=== PATIENT | female | born 1975 | race Caucasian/White ===

== ENCOUNTER 2021-11-10 06:34 | Inpatient (IN) | payer MEDICARE ==
[~2021-11-10] VITALS: Ht 152.4 cm; Wt 76.4 kg
[2021-11-10] MEDS ORDERED: Prozac20 MG PO (06:48)
[2021-11-10] MEDS ORDERED: LISI20 PO (06:48)
[2021-11-10] MEDS ORDERED: ROXICODONE15 MG PO (06:48)
[2021-11-10 06:56] LABS: BASOPHILS ABSOLUTE AUTO 0.05 K/mm3 (0.00-0.23); BASOPHILS PERCENT AUTO 0 % (0-2); EOSINOPHILS ABSOLUTE AUTO 0.09 K/mm3 (0.00-0.68); EOSINOPHILS PERCENT AUTO 1 % (0-6); Hematocrit 44.5 % (33.0-51.0); Hemoglobin 15.3 g/dL (11.5-16.0); IMMATURE GRAN ABSOLUTE AUTO 0.05 K/mm3 (0.00-0.10); IMMATURE GRAN PERCENT AUTO 0 % (0-1); LYMPHOCYTES PERCENT AUTO 6 % (21-46); MONOCYTES ABSOLUTE AUTO 0.38 K/mm3 (0.16-1.47); MONOCYTES PERCENT AUTO 3 % (4-13); Mean Corpuscular HGB 29.9 pg (26.0-34.0); Mean Corpuscular HGB Conc 34.4 g/dL (31.5-36.5); Mean Corpuscular Volume 87 fL (80-100); Mean Platelet Volume 9.8 fL (9.1-12.4); NEUTROPHILS ABSOLUTE AUTO 12.91 K/mm3 (1.96-9.15); NEUTROPHILS PERCENT AUTO 90 % (41-73); Platelet Count 272 K/mm3 (150-400); RDW Coefficient Variation 13.7 % (11.7-14.2); RDW Standard Deviation 44.4 fL (35.1-46.3); Red Blood Cell Count 5.11 M/mm3 (3.80-5.20); White Blood Cell Count 14.38 K/mm3 (4.00-11.30)
[2021-11-10 07:15] LABS: Albumin, Blood 3.6 g/dL (3.4-5.0); Albumin/Globulin Ratio 0.8 (0.8-1.8); Bilirubin, Total 0.5 mg/dL (0.1-1.0); Calcium, Blood 9.2 mg/dL (8.5-10.1); Creatinine, Blood 0.43 mg/dL (0.40-1.00); Globulin, Blood 4.4 g/dL (2.2-4.0); Potassium, Blood 3.6 mmol/L (3.5-5.5)
[2021-11-10 07:27] LABS: Source, Urine Clean Catch
[2021-11-10 07:34] LABS: Bilirubin, Urine Neg (Neg); Blood, Urine 4+ (Neg); Glucose Qualitative, Urine Neg (Neg); Ketones, Urine Neg (Neg); Leukocyte Esterase, Urine 3+ (Neg); Nitrite, Urine Neg (Neg); Protein, Urine 3+ (Neg); Specific Gravity, Urine 1.005 (1.003-1.022); Urobilinogen, Urine NORM (Normal)
[2021-11-10 07:44] LABS: Appearance, Urine Turbid (Clear); Color, Urine Yellow (P-Yellow)
[2021-11-10 07:45] LABS: Red Blood Cells, Urine TNTC /hpf (0-2); White Blood Cells, Urine TNTC /hpf (0-5)
[2021-11-10 07:46] LABS: Bacteria Many /hpf
[2021-11-10 07:47] LABS: Amorphous Mod (0-Heavy); Squamous Epithelial Cells Mod /hpf (Few); Triple Phosphate Crystals Few /hpf
--- NOTE | 2021-11-10 12:55 | NUR ---
PT ARRIVED FROM ED FOR SBO. PT WAS ALERT BUT MOANING. PT STATED SHE WAS IN PAIN. PT WAS TRANSFERED TO SURGICAL BED WITH SLIDER SHEET. PT'S BELONGINGS THAT CAME WITH HER ON [place] WERE PLACED IN PT'S CLOSET. PT WAS PLACED IN HOSPITAL GOWN BUT SPORTS BRA AND YOGA PANTS WERE LEFT IN PLACE. THE PANTS APPERAED TO BE HOLDING A PAD IN PLACE OVER PT'S UROSTOMY. PT STATED SHE WANTED WATER AND WAS DIFFICULT TO REASON WITH AND BECOME LOUDER WITH HER REQUEST FOR WATER. EDUCATION WAS PROVIDED THAT DRINKING WATER COULD MAKE HER PAIN AND CONDITION WORSE. PT DID NOT SEEM CARE IF IT MADE HER SYMPTOMS WORSE. Josue JULIEN GAVE PT PAIN MEDICATIOIN AND PT IS NOW RESTING AND APPEARS TO BE ASLEEP. WILL CONTINUE TO MONITOR.
--- NOTE | 2021-11-10 13:36 | NUR ---
PT ARRIVED TO THE UNIT AT APPROXIMATELY 1300. PT CRYING IN PAIN AND REQUESTING WATER. PT WAS EDUCATED THAT DRINKING WATER WILL CAUSE VOMITING AND WILL NOT ALLOW FOR BOWEL REST. PT STATES SHE WAS TOLD SHE COULD HAVE PO FLUIDS IN THE ER. PT WAS EDUCATED THAT IT IS OFTEN OK TO HAVE SIPS AND ICE CHIPS FOR COMFORT, IF AN NG TUBE IS IN PLACE. PT WAS EDUCATED TAKING PO WHEN NO NG IS IN PLACE, WILL NOT ALLOW THE BOWELS TO REST, AND COULD PROLONG HER ILLNESS AND INCREASE PAIN AND NAUSEA. PT CONTINUED TO CRY AND REPORT ABD PAIN, WELL CONTINUING TO REQUEST WATER. MOUTH MOISTERIZER AND MOUTH SWABS OFFERED PT REFUSED. SIP OF WATER WAS PROVIDED AT PT INSISTANCE, SHE VOMITED A SMALL AMOUNT AFTER SHE TOOK A SIP OF WATER, EDUCATION REINFORCED. PT CONTINUING TO REFUSE NG TUBE PLACMENT. LUNG SOUNDS ARE CLEAR. HEART SOUNDS REGULAR. BOWEL SOUNDS HYPOACTIVE TO THE RUQ, BOWEL SOUNDS MINIMAL TO REMAINING QUADRANTS. FOUL ODOR PRESENT, APPEARS TO BE COMING FROM THE PAD USED TO COVER HER STOMA. PT COVERS UROSTOMY SITE WITH A INCONTINENCE PAD, PAD IS SOILED, PT REPORTS ALLERGY TO LATEX. UNSURE IF SANITARY PADS AT THE HOSPITAL ARE LATEX FREE, PT REPORTED SHE WILL WAIT FOR HER FRIEND TO BRING CLEAN PADS AND CLEAN UNDERWARE. PLAN TO COMPLETE FULL SKIN ASSESSMENT AFTER HER FRIEND SUDHAKAR BRINGS ITEMS FROM HOME. DILAUDID GIVEN FOR PAIN, PT RESPONDED WELL AND IS RESTING WITH EYES CLOSED. CONTINUOUS OX IN PLACE FOR HIGH RISK PAIN MANAGEMENT. WILL CONTINUE TO MONITOR.
[2021-11-10] MEDS ORDERED: CYCL10 PO (14:03)
[2021-11-10] MEDS ORDERED: TRIDERM28.4 GM TOP (14:20)
[2021-11-10] MEDS ORDERED: NYSTATIN15 GM TOP (14:21)
[2021-11-10] MEDS ORDERED: EPIPEN0.3 MG/0.3 IM (14:21)
[2021-11-10] MEDS ORDERED: PROM25 PO (14:22)
--- NOTE | 2021-11-10 18:09 | NUR ---
SHIFT SUMMARY PT ARRIVED FROM ED WITH A PARTIAL SBO. PT HAS SPINA BIFIDA THAT LIMITS HER MOBILITY. PT USES WHEELCHAIR AT BASELINE. ED WAS UNABLE TO PLACE NG TUBE. 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 PT STATES SHE ALSO HAS NEUROGENIC BOWEL AND CURRENETLY HAS A PAD IN HER UNDERWEAR FOR INCONTINENCE. PT REFUSED THE OFFER OF ATTENDS. PT HAS BEEN COMPLAINING OF BACK PAIN R/T TO A PAST SPINAL SURGERY. PT HAS HAD NO EPISODES OF VOMITTING SINCE BEING ON THE FLOOR. PT IS CURRENTLY RESTING WITH CALL LIGHT IN PLACE. WILL CONTINUE TO MONITOR.
--- NOTE | 2021-11-10 19:54 | NUR ---
SHIFT SUMMARY PT'S PAIN HAS BEEN BETTER MANAGED SINCE ARRIVAL FROM ER; SHE IS TAKING DILAUDID FOR PAIN MANAGEMENT. PT'S NAUSEA HAS BEEN MANAGED WITH PHENERGAN. SHE IS TOLERATING ICE CHIPS. PT IS ABLE TO REPOSITION HERSELF IN BED. SHE CALLS APPROPRIATELY. PT'S FAMILY VISITED AND WAS AT THE BEDSIDE FOR SUPPORT THIS EVENING. REPORT GIVEN TO GEORGINA GUTHRIE.
--- NOTE | 2021-11-11 04:48 | NUR ---
SHIFT SUMMARY NO ACUTE CHANGES THIS SHIFT. PT DOES REPORT SOME FLATUS. SHE HAS BEEN TOLERATING SMALL AMOUNTS OF ICE CHIPS. IVF INFUSING PER ORDERS. 0.5 MG DILAUDID FOR PAIN. PT OCCASSIONALLY NAUSEATED AND HAS RECEIVED PHENERGAN AND COMPAZINE PRN. PT SELF CATHS THROUGH HER UROSTOMY. USES CALL LIGHT APPROPRIATELY.
[2021-11-11 05:17] LABS: BASOPHILS ABSOLUTE AUTO 0.03 K/mm3 (0.00-0.23); BASOPHILS PERCENT AUTO 0 % (0-2); EOSINOPHILS ABSOLUTE AUTO 0.02 K/mm3 (0.00-0.68); EOSINOPHILS PERCENT AUTO 0 % (0-6); Hematocrit 39.8 % (33.0-51.0); Hemoglobin 13.6 g/dL (11.5-16.0); IMMATURE GRAN ABSOLUTE AUTO 0.03 K/mm3 (0.00-0.10); IMMATURE GRAN PERCENT AUTO 0 % (0-1); LYMPHOCYTES ABSOLUTE AUTO 1.41 K/mm3 (0.84-5.20); LYMPHOCYTES PERCENT AUTO 13 % (21-46); MONOCYTES ABSOLUTE AUTO 0.63 K/mm3 (0.16-1.47); MONOCYTES PERCENT AUTO 6 % (4-13); Mean Corpuscular HGB 29.6 pg (26.0-34.0); Mean Corpuscular HGB Conc 34.2 g/dL (31.5-36.5); Mean Corpuscular Volume 87 fL (80-100); Mean Platelet Volume 10.3 fL (9.1-12.4); NEUTROPHILS ABSOLUTE AUTO 8.58 K/mm3 (1.96-9.15); NEUTROPHILS PERCENT AUTO 80 % (41-73); Platelet Count 244 K/mm3 (150-400); RDW Coefficient Variation 13.8 % (11.7-14.2); RDW Standard Deviation 43.9 fL (35.1-46.3); Red Blood Cell Count 4.59 M/mm3 (3.80-5.20)
[2021-11-11 05:29] LABS: International Normalized Ratio 1.05
[2021-11-11 05:51] LABS: Albumin/Globulin Ratio 0.8 (0.8-1.8); Bilirubin, Total 0.6 mg/dL (0.1-1.0); Bun/Creatinine Ratio 29.3 (12.0-20.0); Calcium, Blood 8.3 mg/dL (8.5-10.1); Creatinine, Blood 0.41 mg/dL (0.40-1.00); Globulin, Blood 3.7 g/dL (2.2-4.0); Magnesium, Blood 2.1 mg/dL (1.6-2.4); Potassium, Blood 3.3 mmol/L (3.5-5.5); Total Protein, Blood 6.7 g/dL (6.4-8.2)
--- NOTE | 2021-11-11 19:22 | NUR ---
SHIFT SUMMARY S/P SBO, A/OX 4, VSS, TOLERATING CLEARS AFTER DIET ADVANCED PER SURGERY, PAIN MANAGED PER EMAR, NAUSEA MANAGED PER EMAR, PT WC AT BASELINE. NO ACUTE EVENTS THIS SHIFT, CALL LIGHT IN REACH, REPORT GIVEN TO GEORGINA GUTHRIE.
[2021-11-12 05:07] LABS: BASOPHILS ABSOLUTE AUTO 0.04 K/mm3 (0.00-0.23); BASOPHILS PERCENT AUTO 0 % (0-2); EOSINOPHILS ABSOLUTE AUTO 0.11 K/mm3 (0.00-0.68); EOSINOPHILS PERCENT AUTO 1 % (0-6); Hematocrit 37.7 % (33.0-51.0); Hemoglobin 12.9 g/dL (11.5-16.0); IMMATURE GRAN ABSOLUTE AUTO 0.04 K/mm3 (0.00-0.10); IMMATURE GRAN PERCENT AUTO 0 % (0-1); LYMPHOCYTES ABSOLUTE AUTO 2.02 K/mm3 (0.84-5.20); LYMPHOCYTES PERCENT AUTO 18 % (21-46); MONOCYTES ABSOLUTE AUTO 0.75 K/mm3 (0.16-1.47); MONOCYTES PERCENT AUTO 7 % (4-13); Mean Corpuscular HGB 29.7 pg (26.0-34.0); Mean Corpuscular HGB Conc 34.2 g/dL (31.5-36.5); Mean Corpuscular Volume 87 fL (80-100); Mean Platelet Volume 10.1 fL (9.1-12.4); NEUTROPHILS PERCENT AUTO 73 % (41-73); Platelet Count 215 K/mm3 (150-400); RDW Coefficient Variation 13.8 % (11.7-14.2); RDW Standard Deviation 43.6 fL (35.1-46.3); Red Blood Cell Count 4.35 M/mm3 (3.80-5.20); White Blood Cell Count 10.96 K/mm3 (4.00-11.30)
[2021-11-12 05:24] LABS: Albumin, Blood 2.9 g/dL (3.4-5.0); Anion Gap 8 mmol/L (6-16); Blood Urea Nitrogen 8 mg/dL (8-24); CO2, Blood 20 mmol/L (21-32); Calcium, Blood 7.9 mg/dL (8.5-10.1); Chloride, Blood 112 mmol/L (98-108); Creatinine, Blood 0.35 mg/dL (0.40-1.00); Glomerular Filtration Rate 128 (60-); Glucose, Blood 87 mg/dL (70-99); Phosphorus, Blood 1.8 mg/dL (2.5-4.9); Potassium, Blood 3.5 mmol/L (3.5-5.5); Sodium, Blood 140 mmol/L (136-145)
--- NOTE | 2021-11-12 07:20 | NUR ---
PRODUCT SAFETY ADMINISTRATOR SUMMARY PATIENT A&O X4 AND COOPERATIVE. VSS. PT DENIED ABD PAIN BUT COMPLAINED OF PAIN NECK, BACK, AND SHOULDER. SHE WAS MEDICATED WITH DILAUDED, PER EMAR. PT REPORTED NAUSEA EARLY IN THE SHIFT. SHE WAS MEDICATED WITH COMPAZINE, PER EMAR. NO OTHER ACUTE CHANGES THIS SHIFT.
--- NOTE | 2021-11-12 15:47 | NUR ---
SURGEON AT BEDSIDE PER DR FLEMING, PT IS TO BEGIN MIRALAX TO ENCOURAGE A BOWEL MOVEMENT. DR FLEMING ALSO PROVIDED A VERBAL ORDER TO INCREASE PT'S PO OXYCODONE FROM 10MG Q6 TO 15MG Q6.
--- NOTE | 2021-11-12 16:58 | NUR ---
SHIFT SUMMARY PT POD 2 LAP APPY. LAP SITES C/D/I. NELY SITE COVERED W/GAUZE 20ML CLOUDY SANGUINOUS DRAINAGE OUT THIS SHIFT. PT IS TAKING IN VERY SMALL AMTS REGULAR DIET WITH NO INCREASE IN PAIN, N/V. SALINE LOCKED IN BETWEEN ABX INFUSIONS. PT AMBULATED IN HALLWAY WITH MIN ASSIST BY MOTHER.
--- NOTE | 2021-11-12 18:43 | NUR ---
SHIFT SUMMARY PT REPORTING INCREASING DISCOMFORT T/O THE SHIFT. PER DR FLEMING, PT OXYCODONE DOSE INCREASED TO 15MG Q6 PRN. PT CONTINUES TO REPORT SIGNIFICANT PAIN IN THE R HIP. PT'S UROSTOMY DOES NOT SHOW ANY APPARENT ISSUES AND PT IS ABLE TO STRAIGHT CATH W/O ASSISTANCE. PT MOVED FROM BED TO W/C W/ 1 PERSON ASSIST AND WHEELED HERSELF THROUGH THE S[place]ORO. PT IS RESTING IN HER ROOM AT THIS TIME. WILL CONTINUE TO MONITOR AND UPDATE NECESSARY.
--- NOTE | 2021-11-13 04:41 | NUR ---
SUMMARY PT SLEPT ON AND OFF T/O THE NIGHT. PT WAS SUCESSFUL IN HAVING A BM TONIGHT, PASSING FLATTUS REGULARLY. PT MEDICATED FOR PAIN PER EMAR WITH GOOD RESULTS. NO ACUTE EVENTS NOTED. PT CURRENTLY SLEEPING IN NO DISTRESS, CALL LIGHT IN REACH.
[2021-11-13 07:45] LABS: Bun/Creatinine Ratio 11.1 (12.0-20.0); Calcium, Blood 7.7 mg/dL (8.5-10.1); Creatinine, Blood 0.45 mg/dL (0.40-1.00)
--- NOTE | 2021-11-13 12:46 | NUR ---
LOW POTASSIUM DR TAVAREZ ORDERED PO POTASSIUM SUPP THIS AM. PATIENT REFUSED STATING THE PILLS WERE TOO LARGE TO SWALLOW. ALSO REFUSED CUTTING OR CRUSHING PILLS IN APPLE SAUCE. REFUSED PLACEMENT OF NEW IV FOR POTASSIUM GIVEN IV. CALLED DR TAVAREZ WHO STATED IT WOULD BE OKAY FOR PATIENT TO EAT A BANANA INSTEAD. PATIENT IS ALLERGIC TO BANANAS. PROVIDED PATIENT WITH SEVERAL POTASSIUM RICH FOOD ITEMS INCLUDING ORANGE JUICE, ORANGES, CANTALOUPE, HONEY DEW, AND POTATO CHIPS. PATIENT IS TOLERATING THE FOOD PROVIDED.
[2021-11-13] MEDS ORDERED: POLYETHYLENE G500 G1 PO (14:49)
--- NOTE | 2021-11-13 15:23 | NUR ---
DISCHARGE SUMMARY PATIENT ALERT AND ORIENTED. BM DURING TANK CAR REPAIRER AND PASSING GAS. DIET ADVANCED THIS SHIFT AND TOLERATING REGULAR DIET. SELF-CATH PER UROSTOMY. USING WC AT BASELINE. LOW POTASSIUM TREATED WITH POTASSIUM RICH FOODS. CLEARED FROM GENERAL SURGERY BY DR FLEMING. DISCHARGE ORDERS OBTAINED FROM DR TAVAREZ. DISCHARGE EDUCATION GIVEN ON SBO, CONSTIPATION, AND FOLLOW UP WITH PCP AND UROLOGY. PATIENT LEFT UNIT VIA WHEELCHAIR FOR HOME WITH FAMILY MEMBER AT 1500.
== END 2021-11-13 15:06 | disposition home or self-care (01) | DRG 389 ==
LOC: ER 06:34 → SURS 10:11
PROVIDERS: Family Medicine; Internal Medicine; Nurse Practitioner Acute Care; ADMIT Internal Medicine
DX: K56.600 Partial intestinal obstruction, unspecified as to cause (principal); N39.0 Urinary tract infection, site not specified; N13.30 Unspecified hydronephrosis; Q05.4 Unspecified spina bifida with hydrocephalus; I10 Essential (primary) hypertension; M54.9 Dorsalgia, unspecified; E87.6 Hypokalemia; G89.4 Chronic pain syndrome; N20.0 Calculus of kidney; N31.9 Neuromuscular dysfunction of bladder, unspecified; D72.829 Elevated white blood cell count, unspecified; L40.9 Psoriasis, unspecified; L89.159 Pressure ulcer of sacral region, unspecified stage; L89.229 Pressure ulcer of left hip, unspecified stage; L89.219 Pressure ulcer of right hip, unspecified stage; N28.89 Other specified disorders of kidney and ureter; F17.210 Nicotine dependence, cigarettes, uncomplicated; R45.1 Restlessness and agitation; Q65.89 Other specified congenital deformities of hip; Z98.2 Presence of cerebrospinal fluid drainage device; Z98.890 Other specified postprocedural states; Z90.49 Acquired absence of other specified parts of digestive tract; Z88.1 Allergy status to other antibiotic agents; Z88.6 Allergy status to analgesic agent; Z88.5 Allergy status to narcotic agent; Z91.040 Latex allergy status; Z88.8 Allergy status to other drugs, medicaments and biological substances; Z79.811 Long term (current) use of aromatase inhibitors; Z79.891 Long term (current) use of opiate analgesic; Z79.899 Other long term (current) drug therapy
CPT/HCPCS: 36415; 51701; 74176; 80048; 80053; 80069; 81001; 81025; 82550; 83605; 83690; 83735; 85025; 85610; 87086; 94762; 96361; 96374; 96375; 96376; 99285-25; A9270; J0696; J0780; J1170; J2250; J2550; J3480; J7030; J7120

== ENCOUNTER → 2022-05-11 | Outpatient (CLI) | payer MEDICARE ==
[~2022-05-11] MED LIST: AMOCLA875 PO; CYCL10 PO; EPIPEN0.3 MG/0.3 IM; FAMO10 PO; LISI20 PO; NYSTATIN15 GM TOP; POLYETHYLENE G500 G1 PO; PROM25 PO; Prozac20 MG PO; ROXICODONE15 MG PO; SULTRIDS PO; TRIDERM28.4 GM TOP; XOPENEX HFA15 GM INH
== END | disposition home or self-care (01) ==
DX: Q64.9 Congenital malformation of urinary system, unspecified (principal); N30.00 Acute cystitis without hematuria

== ENCOUNTER 2022-05-17 08:23 | Inpatient (IN) | payer MEDICARE, OTHER ==
[~2022-05-17] VITALS: Ht 147.3 cm; Wt 75.5 kg
[~2022-05-17 08:23] MED LIST changes: -AMOCLA875 PO; -FAMO10 PO; -SULTRIDS PO; -XOPENEX HFA15 GM INH
[2022-05-17 09:32] LABS: BASOPHILS ABSOLUTE AUTO 0.04 K/mm3 (0.00-0.23); BASOPHILS PERCENT AUTO 1 % (0-2); EOSINOPHILS ABSOLUTE AUTO 0.26 K/mm3 (0.00-0.68); EOSINOPHILS PERCENT AUTO 3 % (0-6); Hematocrit 36.4 % (33.0-51.0); Hemoglobin 12.4 g/dL (11.5-16.0); IMMATURE GRAN ABSOLUTE AUTO 0.04 K/mm3 (0.00-0.10); IMMATURE GRAN PERCENT AUTO 1 % (0-1); LYMPHOCYTES ABSOLUTE AUTO 1.37 K/mm3 (0.84-5.20); LYMPHOCYTES PERCENT AUTO 17 % (21-46); MONOCYTES PERCENT AUTO 5 % (4-13); Mean Corpuscular HGB 28.3 pg (26.0-34.0); Mean Corpuscular HGB Conc 34.1 g/dL (31.5-36.5); Mean Corpuscular Volume 83 fL (80-100); Mean Platelet Volume 9.7 fL (9.1-12.4); NEUTROPHILS ABSOLUTE AUTO 5.77 K/mm3 (1.96-9.15); NEUTROPHILS PERCENT AUTO 73 % (41-73); Platelet Count 330 K/mm3 (150-400); RDW Coefficient Variation 14.2 % (11.7-14.2); RDW Standard Deviation 42.9 fL (35.1-46.3); Red Blood Cell Count 4.38 M/mm3 (3.80-5.20); White Blood Cell Count 7.88 K/mm3 (4.00-11.30)
[2022-05-17 09:54] LABS: Source, Urine Clean Catch
[2022-05-17 10:01] LABS: Albumin, Blood 2.7 g/dL (3.4-5.0); Albumin/Globulin Ratio 0.5 (0.8-1.8); Bilirubin, Total 0.3 mg/dL (0.1-1.0); Bun/Creatinine Ratio 27.6 (12.0-20.0); Creatinine, Blood 0.43 mg/dL (0.40-1.00); Globulin, Blood 5.3 g/dL (2.2-4.0); Potassium, Blood 3.6 mmol/L (3.5-5.5)
[2022-05-17 10:12] LABS: Appearance, Urine Hazy (Clear); Bilirubin, Urine Neg (Neg); Blood, Urine 5+ (Neg); Color, Urine Yellow (P-Yellow); Glucose Qualitative, Urine Neg (Neg); Ketones, Urine Neg (Neg); Leukocyte Esterase, Urine 3+ (Neg); Nitrite, Urine Pos (Neg); Protein, Urine 3+ (Neg); Urobilinogen, Urine NORM (Normal)
[2022-05-17 10:39] LABS: Bacteria Many /hpf; White Blood Cells, Urine 50-100 /hpf (0-5)
[2022-05-17 10:40] LABS: Mucus Light (0-Heavy); Squamous Epithelial Cells Few /hpf (Few)
[2022-05-17 10:44] LABS: Influenza A, PCR NEGATIVE (NEGATIVE); Influenza B, PCR NEGATIVE (NEGATIVE); Resp Syncytial Virus, PCR NEGATIVE (NEGATIVE); SARS-Cov-2 (COVID-19) PCR, MMC NEGATIVE (NEGATIVE)
[2022-05-17] MEDS ORDERED: SULTRIDS PO (14:37)
[2022-05-17] MEDS ORDERED: CYCL10 PO (19:40)
[2022-05-17] MEDS ORDERED: FAMO10 PO (19:43)
[2022-05-17] MEDS ORDERED: XOPENEX HFA15 GM INH (19:44)
--- NOTE | 2022-05-17 19:47 | NUR ---
ADMISSION: PATIENT IS RECIEVED VIA STRETCHER FROM ER. ABLE TO SLIDE OVER TO THE BED INDEPENDANTLY. PATIENT IS ORIENTED TO ROOM AND CALL [facility]. REPORTING R FANK PAIN 9/10 AND TEARFUL. VSS.
--- NOTE | 2022-05-18 00:22 | NUR ---
/ANXIETY/PAIN: PATIENT WAS MEDICATED FOR R FLANK PAIN WITH 15 MG OXYCODONE AND 1 MG OF DILAUDID IV. PATIENT IS CRYING AND UNCONSOLABLE. PATIENT NEEDS TO STRAIGHT CATH BUT WE DO NOT HAVE 14F COUDE CATHETHER WITH GUIDE WIRE IN THE FACILITY. PATIENT ALSO HAS A LATEX ALLERGY. PATIENT AND BEHAVIORAL HEALTH CLINICIAN BOTH ATTEMPTED TO STRAIGH CATH WITH A 14 FR ALL SILICONE, SILVER/HYDROGEL COATED. THIS WAS UNSUCCESSFUL. BLADDERSCAN SHOWS 268ML IN BLADDER. DR ELLISON IS CALLED AND ORDERS ARE OBTAINED TO DC IVF, PATIENT IS ALREADY NPO AND MONITOR FOR BLADDER DISTENTION. ALSO A DOSE OF ATIVAN 0.5 MG X 1 NOW. ATIVAN WAS GIVEN PATIENT REFUSED IV FENTANYL FOR PAIN. IV DILAUDID IS DUE AT 0030. PATIENT IS CALMER NOW AND SAID SHE WILL WAIT FOR THE DILAUDID. PATIENT IS REFUSING FULL SKIN ASSESSMENT AT THIS TIME AND WOULD NOT ALLOW A TWO RN SKIN CHECK.
--- NOTE | 2022-05-18 06:43 | NUR ---
SHIFT SUMMARY: PATIENT HAD GOOD EFFECT FROM ATIVAN AND SLEPT WELL UNTIL 0530. IV ACCESS WAS LOST. PATIENT REFUSES ATTEMPT FOR IV START IN HAND AREA. CRANE OPERATOR IS MADE AWARE THAT US WILL HAVE TO BE USED. PATIENT HAD BEEN NPO EXCEPT FOR SIPS WITH PO PAIN MEDS.
--- NOTE | 2022-05-18 10:54 | NUR ---
-THIS NURSE CALLED DR. MÁRQUEZ'S SCEDULER TIM AT [phone] EXT. 3 TO ASK IF HAS SEEN CONSULT. NO ANSWER, LEFT MESSAGE FOR HER TO RETURN MY CALL.
--- NOTE | 2022-05-18 15:16 | NUR ---
PT WAS CRYING AND YELLING OUT IN PAIN DESPITE THIS NURSE MEDICATING PER EMAR. PT DEMANDED TO BE DISCHARGED HOME. THIS NURSE CALLED DR TAVAREZ TO NOTIFY HIM THAT SHE EXPRESSED DESIRE TO BE DISCHARGED AND HE IS REVIEWING CHART AT THIS TIME. POSSIBLY TO PROCEED WITH [facility]. PT STATES THAT SHE FEELS SAFE TO GO HOME AND STATES THAT SHE WILL FOLLOW UP WITH IR ORDERED AND WILL TAKE ANTIBIOTICS PRESCRIBED. PER PT REQUEST, THIS NURSE CALLED SUDHAKAR AND UPATED HER. SHE WILL ALSO COORDINATED PICKING UP PT ANTIBIOTICS.
--- NOTE | 2022-05-18 17:43 | NUR ---
SHIFT SUMMARY PT AXO. CRYING AND BREATHING RAPIDLY WHEN NURSE IS IN THE ROOM STATING HER PAIN IS 10/10 ALL DAY DESPITE MEDICATED PER EMAR. STATES THIS NURSE IS "NOT DOING ANYTHING FOR MY PAIN." SEE PRIOR NOTE ABOUT PATIENT REQUESTING DISCHARGE. AT THIS TIME PT IS UNSURE IF SHE WANTS TO BE DISCHARGED HOME NELSY, CHARGE NURSE AWARE. . VSS. R. NEPHROSTOMY PLACED THIS SHIFT, PATENT AND DRAINING RED/BLOOD URINE. STOMA TO RIGHT LOWER ABDOMEN IS PATENT AND PATIENT SELF CATHS WITH HOME CATHETERS AT BEDSIDE, ALSO BLOOD TINGED URINE OUT WITH BLOOD CLOTS. DESPITE ENOUCOURAGING PO FLUID INTAKE, PT STATES THAT DRINKING WATER MAKES HER RINGING IN HER EARS WORSE AND REFUSES TO DRINK WATER. PT UP TO WHEELCHAIR AT BASELINE.
[2022-05-18] MEDS ORDERED: AMOCLA875 PO (18:21)
--- NOTE | 2022-05-18 18:30 | NUR ---
PT CRYING AND UPSET BECAUSE SHE "CAN'T EAT" HER DINNER. SHE STATES THAT SHE IS "ALLERGIC" TO WHEAT BREAD AND TOMATO SAUCE BUT WOULD NOT ALLOW THIS NURSE TO ADD TO HER ALLERY LIST THOUGH. SHE ATE HALF OF HER DINNER ROLL AND STATED HER MOUTH IS NOW "BREAKING OUT." SHE REFUSED TO EAT ANYTHING ELSE ON HER TRAY STATING THAT IT WAS "DISGUSTING." WHEN THIS NURSE ASKED HER IF SHE WAS STILL WANTING TO BE DISCHARGED HOME, SHE STATED SHE WAS UNSURE AND DIDNT WANT TO GO HOME ON A "CLEAR LIQUID DIET." (WHICH SHE'S NOT, SHE HAS A REGULAR DIET AT THIS TIME, SHE IS JUST REFUSING ALL FOODS OFFERED.) DR TAVAREZ NOTIFIED
== END 2022-05-18 19:46 | disposition home or self-care (01) | DRG 699 ==
LOC: ER 08:23 → MEDS 08:24 → ERHOLD 08:24 → MEDS 19:23
PROVIDERS: Emergency Medicine; Physician Assistant; ADMIT Student in an Organized Health Care Education/Training Program
PROC: 0T9030Z Drainage of Right Kidney with Drainage Device, Percutaneous Approach (ICD-10-PCS; principal; 2022-05-18)
PROC: BT11YZZ Fluoroscopy of Right Kidney using Other Contrast (ICD-10-PCS; 2022-05-18)
PROC: BT41ZZZ Ultrasonography of Right Kidney (ICD-10-PCS; 2022-05-18)
DX: T83.518A Infection and inflammatory reaction due to other urinary catheter, initial encounter (principal); F11.20 Opioid dependence, uncomplicated; N13.6 Pyonephrosis; M54.9 Dorsalgia, unspecified; I10 Essential (primary) hypertension; Q05.9 Spina bifida, unspecified; Q65.89 Other specified congenital deformities of hip; B95.4 Other streptococcus as the cause of diseases classified elsewhere; B96.20 Unspecified Escherichia coli [E. coli] as the cause of diseases classified elsewhere; L40.9 Psoriasis, unspecified; G89.4 Chronic pain syndrome; J44.9 Chronic obstructive pulmonary disease, unspecified; R09.1 Pleurisy; F17.210 Nicotine dependence, cigarettes, uncomplicated; Y84.6 Urinary catheterization as the cause of abnormal reaction of the patient, or of later complication, without mention of misadventure at the time of the procedure; Z20.822 Contact with and (suspected) exposure to COVID-19; Z90.49 Acquired absence of other specified parts of digestive tract; Z88.1 Allergy status to other antibiotic agents; Z88.5 Allergy status to narcotic agent; Z91.041 Radiographic dye allergy status; Z91.040 Latex allergy status; Z88.8 Allergy status to other drugs, medicaments and biological substances; Z91.013 Allergy to seafood; Z91.018 Allergy to other foods; Z79.899 Other long term (current) drug therapy; Z79.811 Long term (current) use of aromatase inhibitors; Z98.890 Other specified postprocedural states
CPT/HCPCS: 0241U; 36415; 50432; 71046; 74176; 76937; 80053; 81001; 85025; 87077; 87086; 87147; 87186; 93005; 93010; 94640; 94664; 94760; 99152; 99153; A9270; C1729; C1769; C1894; G0378; J0295; J0696; J1170; J1200; J1720; J2060; J2250; J3010; J7030; J7040; Q9967

== ENCOUNTER 2022-05-29 10:39 | Emergency (ER) | payer MEDICARE, OTHER ==
[~2022-05-29] VITALS: Ht 147.3 cm; Wt 81.7 kg
[~2022-05-29 10:39] MED LIST changes: +AMOCLA875 PO; +FAMO10 PO; +SULTRIDS PO; +XOPENEX HFA15 GM INH
[2022-05-29] MEDS ORDERED: ROXICODONE15 MG PO (12:55)
== END 2022-05-29 17:12 | disposition home or self-care (01) ==
LOC: ER 10:39
DX: T83.092A Other mechanical complication of nephrostomy catheter, initial encounter (principal); Y73.8 Miscellaneous gastroenterology and urology devices associated with adverse incidents, not elsewhere classified; Z88.5 Allergy status to narcotic agent; I10 Essential (primary) hypertension; Z87.891 Personal history of nicotine dependence; Z88.8 Allergy status to other drugs, medicaments and biological substances; Z88.1 Allergy status to other antibiotic agents; Z91.040 Latex allergy status; Z91.013 Allergy to seafood; Z91.018 Allergy to other foods; Z79.899 Other long term (current) drug therapy
CPT/HCPCS: 74176

== ENCOUNTER 2023-04-24 10:33 | Emergency (ER) | payer MEDICARE, OTHER ==
[~2023-04-24] VITALS: Ht 147.3 cm; Wt 81.7 kg
[2023-04-24 10:46] VITALS: BP 165/103
[2023-04-24] MEDS ORDERED: Amoxicillin500 MG PO (10:48)
== END 2023-04-24 10:49 | disposition home or self-care (01) ==
LOC: ER 10:33
DX: K04.7 Periapical abscess without sinus (principal); I10 Essential (primary) hypertension; Z88.5 Allergy status to narcotic agent; Z88.8 Allergy status to other drugs, medicaments and biological substances; Z91.040 Latex allergy status; Z91.013 Allergy to seafood; Z91.018 Allergy to other foods; Z79.899 Other long term (current) drug therapy
CPT/HCPCS: 99282

== ENCOUNTER 2023-07-15 09:37 | Emergency (ER) | payer MEDICARE, OTHER ==
[~2023-07-15] VITALS: Ht 147.3 cm; Wt 81.7 kg
[~2023-07-15 09:37] MED LIST changes: +Amoxicillin500 MG PO
[2023-07-15] MEDS ORDERED: METO50ER PO (10:03)
[2023-07-15] MEDS ORDERED: Cleocin HCl150 MG PO (11:04)
[2023-07-15 11:22] VITALS: BP 139/90
== END 2023-07-15 11:23 | disposition home or self-care (01) ==
LOC: ER 09:37
DX: L03.115 Cellulitis of right lower limb (principal); Z88.8 Allergy status to other drugs, medicaments and biological substances; Z88.6 Allergy status to analgesic agent; Z91.040 Latex allergy status; Z91.013 Allergy to seafood; Z88.1 Allergy status to other antibiotic agents; Z88.5 Allergy status to narcotic agent; Z91.018 Allergy to other foods; Z79.899 Other long term (current) drug therapy; I10 Essential (primary) hypertension
CPT/HCPCS: 93971; 99283-25; A9270

== ENCOUNTER 2024-06-06 09:45 | Emergency (ER) | payer MEDICARE, OTHER ==
[~2024-06-06] VITALS: Ht 147.3 cm; Wt 81.7 kg
[~2024-06-06 09:45] MED LIST changes: +Cleocin HCl150 MG PO; +METO50ER PO; +PENICILLIN250 MG/51 PO
[2024-06-06] MEDS ORDERED: Ipratropium/Albuterol SulF 2.5-0.5MG/3 ML Amp INH ONE (10:10)
[2024-06-06 10:50] VITALS: BP 165/92
[2024-06-06] MEDS ORDERED: ALBU2.5V5 INH (11:49)
[2024-06-06] MEDS ORDERED: Dexamethasone Sod Phos 10 MG/ML 1ML VIAL PO ONE (11:50)
== END 2024-06-06 11:58 | disposition home or self-care (01) ==
LOC: ER 09:45
DX: J45.901 Unspecified asthma with (acute) exacerbation (principal); I10 Essential (primary) hypertension; Q05.9 Spina bifida, unspecified; Z88.6 Allergy status to analgesic agent; Z88.5 Allergy status to narcotic agent; Z91.041 Radiographic dye allergy status; Z91.040 Latex allergy status; Z88.1 Allergy status to other antibiotic agents; Z91.013 Allergy to seafood; Z88.8 Allergy status to other drugs, medicaments and biological substances; Z91.018 Allergy to other foods; Z79.899 Other long term (current) drug therapy
CPT/HCPCS: 71045; 94640; 94664; 99285-25; J1100

== ENCOUNTER 2024-08-29 18:44 | Inpatient (IN) | payer MEDICARE, OTHER ==
[~2024-08-29] VITALS: Ht 134.6 cm; Wt 86.7 kg
[~2024-08-29 18:44] MED LIST changes: +ALBU2.5V5 INH
[2024-08-29 21:02] LABS: BASOPHILS ABSOLUTE AUTO 0.07 K/mm3 (0.00-0.23); BASOPHILS PERCENT AUTO 1 % (0-2); EOSINOPHILS ABSOLUTE AUTO 0.26 K/mm3 (0.00-0.68); EOSINOPHILS PERCENT AUTO 3 % (0-6); Hematocrit 39.6 % (33.0-51.0); Hemoglobin 13.8 g/dL (11.5-16.0); IMMATURE GRAN PERCENT AUTO 1 % (0-1); LYMPHOCYTES ABSOLUTE AUTO 2.04 K/mm3 (0.84-5.20); LYMPHOCYTES PERCENT AUTO 22 % (21-46); MONOCYTES ABSOLUTE AUTO 0.53 K/mm3 (0.16-1.47); MONOCYTES PERCENT AUTO 6 % (4-13); Mean Corpuscular HGB 29.6 pg (26.0-34.0); Mean Corpuscular HGB Conc 34.8 g/dL (31.5-36.5); Mean Corpuscular Volume 85 fL (80-100); NEUTROPHILS ABSOLUTE AUTO 6.42 K/mm3 (1.96-9.15); NEUTROPHILS PERCENT AUTO 68 % (41-73); RDW Coefficient Variation 15.4 % (11.7-14.2); RDW Standard Deviation 47.2 fL (35.1-46.3); Red Blood Cell Count 4.67 M/mm3 (3.80-5.20); White Blood Cell Count 9.42 K/mm3 (4.00-11.30)
[2024-08-29 21:13] LABS: Albumin, Blood 3.2 g/dL (3.4-5.0); Albumin/Globulin Ratio 0.6 (0.8-1.8); Bilirubin, Total 0.3 mg/dL (0.1-1.0); Calcium, Blood 8.6 mg/dL (8.5-10.1); Creatinine, Blood 0.44 mg/dL (0.40-1.00); Globulin, Blood 5.2 g/dL (2.2-4.0); Potassium, Blood 3.8 mmol/L (3.5-5.5); Total Protein, Blood 8.4 g/dL (6.4-8.2)
[2024-08-29 21:16] LABS: Platelet Count 289 K/mm3 (150-400)
[2024-08-29 21:17] LABS: Mean Platelet Volume 11.2 fL (9.1-12.4)
[2024-08-29] MEDS ORDERED: OxyCODONE HCL 5 MG TAB PO ONE (21:55)
[2024-08-29] MEDS ORDERED: DiphenhydrAMINE HCl 50 MG/ML 1ML Vial IV ONE (22:00)
[2024-08-29] MEDS ORDERED: Cefepime HCl 1,000 MG in NS 100 ML IV ONE (22:00)
[2024-08-29] MEDS ORDERED: Vancomycin HCL 1,500 MG in NS 250 ML IV ONE (22:15)
[2024-08-29] MEDS ORDERED: Ondansetron 4 MG TAB PO PRN (22:40)
[2024-08-29] MEDS ORDERED: FLU VACC TS2024-25(6MOS UP)/PF 45 MCG/0.5 ML SYRINGE IM ONE (22:40)
[2024-08-29] MEDS ORDERED: Prochlorperazine Edisylate 10 mg Vial IV PRN (22:45)
[2024-08-29] MEDS ORDERED: NS 1,000 ML IV SCH (23:00)
[2024-08-29 23:18] LABS: C-REACTIVE PROTEIN, EXT RANGE 1.81 mg/dL (0.000-0.300)
[2024-08-30 00:42] VITALS: BP 149/91
[2024-08-30] MEDS ORDERED: ESCI20 PO (00:51)
[2024-08-30] MEDS ORDERED: FAMO20 PO (00:52)
[2024-08-30] MEDS ORDERED: Kaopectate240 MG PO (00:53)
[2024-08-30] MEDS ORDERED: OxyCODONE HCL 5 MG TAB PO PRN ×2 (01:40→11:25)
[2024-08-30] MEDS ORDERED: HYDROmorphone HCl/Pf 1MG SYR IV PRN ×2 (03:05→07:45)
[2024-08-30 04:06] VITALS: BP 124/80
[2024-08-30 05:30] LABS: BASOPHILS ABSOLUTE AUTO 0.04 K/mm3 (0.00-0.23); BASOPHILS PERCENT AUTO 1 % (0-2); EOSINOPHILS ABSOLUTE AUTO 0.27 K/mm3 (0.00-0.68); EOSINOPHILS PERCENT AUTO 3 % (0-6); Hematocrit 36.6 % (33.0-51.0); Hemoglobin 12.5 g/dL (11.5-16.0); IMMATURE GRAN ABSOLUTE AUTO 0.02 K/mm3 (0.00-0.10); IMMATURE GRAN PERCENT AUTO 0 % (0-1); LYMPHOCYTES ABSOLUTE AUTO 1.83 K/mm3 (0.84-5.20); LYMPHOCYTES PERCENT AUTO 21 % (21-46); MONOCYTES ABSOLUTE AUTO 0.46 K/mm3 (0.16-1.47); MONOCYTES PERCENT AUTO 5 % (4-13); Mean Corpuscular HGB 29.1 pg (26.0-34.0); Mean Corpuscular HGB Conc 34.2 g/dL (31.5-36.5); Mean Corpuscular Volume 85 fL (80-100); NEUTROPHILS ABSOLUTE AUTO 6.04 K/mm3 (1.96-9.15); NEUTROPHILS PERCENT AUTO 70 % (41-73); Platelet Count 246 K/mm3 (150-400); RDW Coefficient Variation 14.9 % (11.7-14.2); RDW Standard Deviation 46.5 fL (35.1-46.3); Red Blood Cell Count 4.29 M/mm3 (3.80-5.20); White Blood Cell Count 8.66 K/mm3 (4.00-11.30)
--- NOTE | 2024-08-30 05:41 | NUR ---
NOC SUMMARY- PT ARRIVED TO ROOM IN NO DISTRESS. PT IS INCOTIENT BOWEL AND HAS A URINARY STOMA. PT IS ABLE TO SELF CATH NEEDED. PT RIGHT FOOT HAS A MEPILEX PLACED. PT PAIN HAS BEEN MANAGED WELL. PT IS EATING AND DRINKING. PT HAS EXCORIATION ON BUTTOCKS AND GROIN. PT REFUSED TO BE FLOATED ON PILLOWS. PT STATES SHE IS ABLE TO TURN HERSELF. PT REFUSED TO WEAR TELE DUE TO HAVING SEVERE REACTION TO TELE PATCHES. DR PALM CALLED AND INFORMED OF REFUSAL AND NEED OF MORE PAIN MEDS. PROVIDER ORDERED IV PAIN MEDS. DR HO IN TO SEE PT. NO NEW ORDERS. CALL LIGHT IN REACH.
[2024-08-30 05:45] LABS: International Normalized Ratio 0.97; Prothrombin Time Results 10.4 Sec (9.7-11.5)
[2024-08-30 05:51] LABS: Albumin, Blood 3.1 g/dL (3.4-5.0); Albumin/Globulin Ratio 0.7 (0.8-1.8); Bilirubin, Total 0.4 mg/dL (0.1-1.0); Bun/Creatinine Ratio 20.5 (12.0-20.0); Calcium, Blood 8.4 mg/dL (8.5-10.1); Creatinine, Blood 0.44 mg/dL (0.40-1.00); Globulin, Blood 4.6 g/dL (2.2-4.0); Potassium, Blood 3.8 mmol/L (3.5-5.5); Total Protein, Blood 7.7 g/dL (6.4-8.2)
[2024-08-30] MEDS ORDERED: Cefepime HCl 1,000 MG in NS 100 ML IV SCH (08:00)
[2024-08-30] MEDS ORDERED: Enoxaparin 40 MG/0.4 ML SYR SC SCH (09:00)
[2024-08-30] MEDS ORDERED: Miconazole Nitrate 2% 85 GM PWD TOP SCH (09:00)
[2024-08-30] MEDS ORDERED: Docusate Sodium 100 MG Cap PO SCH (09:00)
[2024-08-30 09:23] VITALS: BP 138/85
--- NOTE | 2024-08-30 10:50 | NUR ---
Pt requested anitnausea medication RN notified.
[2024-08-30] MEDS ORDERED: Vancomycin HCL 1,500 MG in NS 250 ML IV SCH (13:00)
--- NOTE | 2024-08-30 13:20 | NUR ---
DRESSING CHANGE PT REQUESTS DRESSING TO R FOOT BE REMOVED R/T ALLERGIC REACTION TO ADHESIVE. MEPILEX REMOVED. PT STATES SHE IS UNABLE TO TOLERATE MOST DRESSINGS. SITE CLEANED c STERILE WATER. EXU DRY c MEDIPORE TAPE PLACED ON SITE. LIGHT SEROSANG DRAINAGE NOTED ON OLD DRESSING. PT TOLERATED WELL, INVOLVED IN CARE.
[2024-08-30 16:46] VITALS: BP 160/93
--- NOTE | 2024-08-30 18:03 | NUR ---
SHIFT SUMMARY S/P R FOOT CELLULITIS. NO ACUTE CHANGES TODAY. TOLERATING ORALS, MEDICATED FOR NAUSEA 1x TODAY c RELIEF. IV FLUIDS/ABX INFUSING PER EMAR. PT SELF-CATH. NO BM. NO AMBULATION TODAY, WHEELCHAIR BASELINE. DRESSING CHAGE TO R FOOT PER PREVIOUS NOTE. PT REPORTS PAIN MORE WELL MANAGED TODAY, MEDICATED PER EMAR. CALL LIGHT IN REACH, BED IN LOWEST POSITION, WILL REPORT TO GEORGINA GUTHRIE.
[2024-08-30 20:06] VITALS: BP 159/87
--- NOTE | 2024-08-30 20:11 | NUR ---
ASSUMPTION OF CARE AT 2004. REPORT RECEIVED FROM CLIFF TEIXEIRA RN. THIS RN TO ASSUME CARE OF PT GOING FORWARD.
[2024-08-30] MEDS ORDERED: Famotidine 20 MG Tab PO SCH (20:35)
[2024-08-30] MEDS ORDERED: Cyclobenzaprine HCl 10 MG Tab PO PRN (20:35)
[2024-08-30] MEDS ORDERED: Citalopram Hydrobromide 20 MG Tab PO SCH (21:00)
[2024-08-30] MEDS ORDERED: Metoprolol Succinate 50 MG TABCR PO SCH (21:00)
[2024-08-30] MEDS ORDERED: Lisinopril 20 MG Tab PO SCH (21:00)
[2024-08-30 22:22] VITALS: BP 141/89
[2024-08-31 02:16] VITALS: BP 115/82
--- NOTE | 2024-08-31 03:35 | NUR ---
PROGRESS NOTE. DRESSING REPLACEMENT. AT 0245AM THIS RN WAS HELPING REPOSITION PATIENT AND NOTICED RIGHT FOOT DRESSING HAD FALLEN OFF. REPLACED DRESSING WITH EXUDRY PAD AND WRAPPED WITH KERLEX GAUZE AND TAPED TO KERLEX. PT EDUCATION PROVIDED.
[2024-08-31 05:35] LABS: BASOPHILS ABSOLUTE AUTO 0.04 K/mm3 (0.00-0.23); BASOPHILS PERCENT AUTO 1 % (0-2); EOSINOPHILS ABSOLUTE AUTO 0.24 K/mm3 (0.00-0.68); EOSINOPHILS PERCENT AUTO 4 % (0-6); Hematocrit 33.1 % (33.0-51.0); Hemoglobin 11.1 g/dL (11.5-16.0); IMMATURE GRAN ABSOLUTE AUTO 0.03 K/mm3 (0.00-0.10); IMMATURE GRAN PERCENT AUTO 1 % (0-1); LYMPHOCYTES ABSOLUTE AUTO 1.52 K/mm3 (0.84-5.20); LYMPHOCYTES PERCENT AUTO 25 % (21-46); MONOCYTES ABSOLUTE AUTO 0.44 K/mm3 (0.16-1.47); MONOCYTES PERCENT AUTO 7 % (4-13); Mean Corpuscular HGB Conc 33.5 g/dL (31.5-36.5); Mean Corpuscular Volume 86 fL (80-100); NEUTROPHILS ABSOLUTE AUTO 3.75 K/mm3 (1.96-9.15); NEUTROPHILS PERCENT AUTO 62 % (41-73); Platelet Count 198 K/mm3 (150-400); RDW Coefficient Variation 15.1 % (11.7-14.2); RDW Standard Deviation 48.1 fL (35.1-46.3); Red Blood Cell Count 3.83 M/mm3 (3.80-5.20); White Blood Cell Count 6.02 K/mm3 (4.00-11.30)
--- NOTE | 2024-08-31 05:54 | NUR ---
SHIFT SUMMARY NOC. PT ADMIT FOR OSTEOMYELITIS OF R FOOT. PT MEDICATED FOR PAIN WITH OXY 15MG Q 4 HOURS AND DILAUDID 1MG FOR BREAK THROUGH. PT REPORTS IMPROVED RELIEF WITH DILAUDID OVER OXY. PT SELF CATHS SELF THROUGH UROSTOMY STOMA. HOME MEDS REORDERED THIS SHIFT AND BP IMPROVED AFTER MEDS FOR HTN. DRESSING CHANGED PER PREVIOUS NOTE. MAKES NEEDS KNOWN, CALL LIGHT IN REACH.
[2024-08-31 05:57] LABS: Bun/Creatinine Ratio 19.9 (12.0-20.0); Calcium, Blood 8.2 mg/dL (8.5-10.1); Creatinine, Blood 0.45 mg/dL (0.40-1.00)
[2024-08-31 07:21] VITALS: BP 158/98
[2024-08-31] MEDS ORDERED: Albuterol 2.5 MG/3 ML VIAL INH PRN (09:40)
[2024-08-31] MEDS ORDERED: Promethazine HCl 25 MG Tab PO PRN (09:40)
[2024-08-31] MEDS ORDERED: DiphenhydrAMINE HCL 25 MG Cap PO PRN (09:45)
[2024-08-31] MEDS ORDERED: Furosemide 10 MG / ML 2ML Vial IV SCH (09:50)
[2024-08-31 13:34] LABS: Vancomycin, Trough 22.4 ug/mL (5.0-10.0)
[2024-08-31] MEDS ORDERED: Vancomycin HCL 1,000 MG in NS 250 ML IV SCH (14:00)
[2024-08-31 14:11] VITALS: BP 161/76
--- NOTE | 2024-08-31 16:03 | NUR ---
SHIFT SUMMARY NO ACUTE CHANGES THIS SHIFT. VSS. R FOOT DRESSING REMAINS CDI. ROXICODONE + IV DILAUDID FOR PAIN CONTROL. PT DIURESING AFTER LASIX. PT STRAIGHT CATHING INDEPENDENTLY. IV ABX PER ORDERS. TAD REG DIET. FRIENDS IN TO VISIT FOR SUPPORT. CALL LIGHT WITHIN REACH.
--- NOTE | 2024-08-31 18:31 | NUR ---
REPORT GIVEN TO CANDICE SEVILLA ON MEDICAL FLOOR. PT TO TRANSFER TO ROOM 358.
[2024-08-31 19:41] VITALS: BP 156/93
--- NOTE | 2024-08-31 19:53 | NUR ---
PT ARRIVE TO MEDICAL FLOOR APPROX 1845. REPORTS 7-01/27 RLE AND HIP PAIN. PT TEARFUL AND EXPRESSES ANXIETY WITH PAIN. TREATED PAIN PER EMAR. PT SELF CATHS WITH OWN SUPPLIES. ALERT AND ORIENTED X4, ABLE TO EXPRESS NEEDS. WHEEL CHAIR AT BASELINE. REPORT RELAYED TO NOC RN.
[2024-08-31] MEDS ORDERED: Citalopram Hydrobromide 20 MG Tab PO SCH (21:00)
[2024-08-31] MEDS ORDERED: NS 250 ML IV PRN (22:30)
--- NOTE | 2024-09-01 04:44 | NUR ---
SHIFT SUMMARY: PT AOX4. WHEELCHAIR AT BASELINE. PT TOLERATING MEDICATIONS WELL, SELF STRAIGHT CATHS VIA URINARY STOMA. HAS HAD GOOD OUTPUT. SOME COMPLAINTS OF PAIN. MEDICATED PER EMR. WOUND DRESSINGS ARE CDI. ABLE TO GET SOME REST TONIGHT. NO ACUTE EVENTS OVERNIGHT. PT SLEEPING IN BED, BED IN LOWEST POSITION, CALL LIGHT IN REACH. CONTINUING CARE.
[2024-09-01 04:50] VITALS: BP 137/79
[2024-09-01 07:33] VITALS: BP 139/92
[2024-09-01 15:12] VITALS: BP 168/100
--- NOTE | 2024-09-01 18:01 | NUR ---
SHIFT SUMMARY PATIENT IN BED THIS SHIFT, ABLE TO SHIFT WEIGHT ADEQUATELY. DRESSING TO RIGHT FOOT INTACT AND DRY. TOLERATING IV ABX WELL. A/O X4. EATING AND DRINKING ADEQUATELY. SELF CATHING URETHRAL STOMA WITH GOOD OUTPUT, YELLOW CLEAR URINE. C/O LEG AND HIP PAIN, GIVEN MEDS PER MAR WITH GOOD RELIEF, GOAL SET 08/27. POWERGLIDE TO L UPPER ARM, INTACT, DRAWS RED BLOOD. CM STATED PT WILL NEED PICC LINE FOR 6 WEEKS ABX AT DISCHARGE, CHARGE NURSE MADE AWARE. CALL LIGHT IN REACH, ABLE TO MAKE NEEDS KNOWN.
[2024-09-01 19:22] VITALS: BP 173/91
[2024-09-01] MEDS ORDERED: Cefepime HCl 2,000 MG in NS 100 ML IV SCH (21:00)
--- NOTE | 2024-09-02 04:07 | NUR ---
SHIFT SUMMARY PATIENT REPORTED RIGHT LEG PAIN T/O SHIFT. IV DILAUDID 1 MG AND OXYCODONE 15 MG ALTERNATED. DENIES CHEST PAIN, SOB, AND N/V. AFEBRILE. POWERGLIDE CRISTINA ARM. IV ABX INFUSED. SELF CATHS. CALL LIGHT IN REACH. BED IN LOWEST POSITION. WILL CONTINUE TO MONITOR UNTIL DAY SHIFT NURSE ASSUMES CARE
[2024-09-02 04:14] VITALS: BP 121/65
[2024-09-02 07:48] VITALS: BP 132/76
[2024-09-02 16:19] VITALS: BP 153/103
[2024-09-02 19:02] VITALS: BP 144/81
--- NOTE | 2024-09-02 19:14 | NUR ---
SHIFT SUMMARY PATIENT IN BED THIS SHIFT. REQUESTING IV AND PO PAIN MEDS, GOOD RELIEF 10/27. ABLE TO REPOSITION ADEQUATELY. A/O X4. POWERGLIDE INTACT, WAS UNABLE TO GET BLOOD RETURN. CALL LIGHT IN REACH,
[2024-09-03 04:03] VITALS: BP 147/90
--- NOTE | 2024-09-03 04:03 | NUR ---
SHIFT SUMMARY PATIENT HAD NO ACUTE CHANGES. ALERT AND ORIENTED. POWERGLIDE CRISTINA ARM INTACT. IV ABX INFUSED. REPORTED LEG PAIN AND IV DILAUDID 1 MG AND OXYCODONE ALTERNATED. DENIES CHEST PAIN, SOB, AND N/V. VSS/AFEBRILE. CALL LIGHT IN REACH. BED IN LOWEST POSITION. WILL CONTINUE TO MONITOR UNTIL DAY SHIFT NURSE ASSUMES CARE.
[2024-09-03 06:59] VITALS: BP 145/77
--- NOTE | 2024-09-03 11:54 | NUR ---
UNABLE TO PLACE PICC PT REPORTS ALLERGIES TO MEPILEX DRESSING, BIOPATCH AND CHG DRESSING. REQUESTS GAUZE DRESSING & MEDIPORE TAPE. DISCUSSED RISKS WITH PT ABOUT NOT DRESSING PICC APROPRIATELY. CALLED DR ROBERTSON AND SHE WILL COME DISCUSS ALTERNATE OPTIONS WITH PT.
--- NOTE | 2024-09-03 12:43 | NUR ---
1230- INFORMED MD ROBERTSON OF PT'S UPPER LEFT DENTAL ABCESS. PT REFUSED TO ACCEPT ANY ORAL ANTIBIOTICS FROM MD. PT STATES, "I WILL NOT TAKE ORAL ANTIBIOTICS. THEY MAKE ME SICK." AWARE.
[2024-09-03] MEDS ORDERED: AMOCLA875 PO (14:23)
[2024-09-03] MEDS ORDERED: FURO20 PO (14:23)
--- NOTE | 2024-09-03 16:06 | NUR ---
DC-1440 PT DC IN STABLE CONDITION WITH ALL BELONGINGS. PT PICKED UP BY FRIEND. PT LEFT IN PERSONAL WC.
== END 2024-09-03 14:40 | disposition home health service (06) | DRG 540 ==
LOC: ER 18:44 → SURS 22:37 → EDBEDREQTM 23:31 → EDBEDREQ 23:31 → EDBEDREQSVC 23:31 → SURS 23:31 → MEDS 08-31 18:57
PROVIDERS: Internal Medicine; Student in an Organized Health Care Education/Training Program; ADMIT Student in an Organized Health Care Education/Training Program
PROC: 0HDMXZZ Extraction of Right Foot Skin, External Approach (ICD-10-PCS; principal; 2024-08-30)
DX: M86.8X7 Other osteomyelitis, ankle and foot (principal); L03.115 Cellulitis of right lower limb; F17.210 Nicotine dependence, cigarettes, uncomplicated; E86.0 Dehydration; M86.8X8 Other osteomyelitis, other site; L40.9 Psoriasis, unspecified; G89.4 Chronic pain syndrome; L97.519 Non-pressure chronic ulcer of other part of right foot with unspecified severity; Z79.51 Long term (current) use of inhaled steroids; Z99.3 Dependence on wheelchair; Z79.2 Long term (current) use of antibiotics; Z79.899 Other long term (current) drug therapy; Z79.811 Long term (current) use of aromatase inhibitors; Z79.891 Long term (current) use of opiate analgesic; Z88.8 Allergy status to other drugs, medicaments and biological substances; Z88.5 Allergy status to narcotic agent; Z91.040 Latex allergy status; Z91.013 Allergy to seafood; Z88.1 Allergy status to other antibiotic agents; Z91.041 Radiographic dye allergy status; Z87.442 Personal history of urinary calculi; Z87.440 Personal history of urinary (tract) infections; Q05.9 Spina bifida, unspecified; Z90.49 Acquired absence of other specified parts of digestive tract; Z87.19 Personal history of other diseases of the digestive system; Z98.890 Other specified postprocedural states; Z93.6 Other artificial openings of urinary tract status; Z91.011 Allergy to milk products; Z28.21 Immunization not carried out because of patient refusal
CPT/HCPCS: 36415; 73630; 73700; 80048; 80053; 80202; 83605; 85025; 85610; 85651; 86140; 87040; 93971; 94640; 94664; 94760; 99285-25; A9270; J0692; J0780; J1171; J1200; J1650; J1940; J3370; J7030; J7050